=== PATIENT | male | born 1950 | race Two or more races ===

== ENCOUNTER 2020-02-21 21:56 | Emergency (ER) | payer OTHER ==
[~2020-02-21] VITALS: Ht 175.3 cm; Wt 81.8 kg
[2020-02-21 22:15] VITALS: Ht 175.3 cm; Wt 81.8 kg
[2020-02-21 23:09] LABS: APTT 28.4 SECONDS (22.8-39.4); INR 0.94 (0.85-1.17); PROTIME 12.6 SECONDS (11.6-15.0)
[2020-02-21 23:56] VITALS: BP 153/94
== END 2020-02-21 23:57 | disposition home or self-care (01) ==
LOC: D.ER 21:56
PROVIDERS: Family Medicine
DX: S80.12XA Contusion of left lower leg, initial encounter (principal); X58.XXXA Exposure to other specified factors, initial encounter

== ENCOUNTER 2021-03-14 16:05 | Emergency (ER) | payer OTHER ==
[2021-03-14 16:16] VITALS: BP 114/74; Ht 175.3 cm
[2021-03-14] MEDS ORDERED: HYDROCODONE-AC1 EAC2 PO (18:17)
== END 2021-03-14 18:46 | disposition home or self-care (01) ==
LOC: D.ER 16:05
DX: S80.812A Abrasion, left lower leg, initial encounter (principal); S82.52XA Displaced fracture of medial malleolus of left tibia, initial encounter for closed fracture; I10 Essential (primary) hypertension; Z72.0 Tobacco use; V23.9XXA Unspecified motorcycle rider injured in collision with car, pick-up truck or van in traffic accident, initial encounter; Y93.9 Activity, unspecified; Y92.9 Unspecified place or not applicable